=== PATIENT | female | born 1990 | race Caucasian/White ===

== ENCOUNTER 2017-02-19 13:00 | Inpatient (IN) | payer OTHER ==
--- NOTE | ~2017-02-19 | PN ---
Unit #: [id number] #: [id number] Patient: WILLIAM WAGNER [id number] [facility] [address] [place] [address] [id number] MR#: [id number] NAME: WILLIAM WAGNER ROOM: [facility]4 Age: 26 Sex: F Admission Date: 02/19/2017 : 1990 Attending Physician: Betsy Dobson M.D. Admitting Physician: Betsy Dobson M.D. Primary Care Physician: Primary Care Physician Scarlet SOUZA PROGRESS NOTES DATE OF SERVICE: 02/22/2017 SUBJECTIVE Ms. Wagner is a 26-year-old white female, who was seen today and chart was reviewed and case was discussed with the staff. She has been anxious, withdrawn, though appears to be doing better than yesterday and appears to be complications. The patient has been taking medications and tolerating them fairly well with no reported side effects. MENTAL STATUS EXAMINATION Young white female who was casually dressed with fair personal hygiene, appears to be in discomfort. She was awake and alert on interaction with intact orientation. Her mood was anxious with a congruent affect. She denies any suicidal or homicidal ideations. Her insight and judgement remain slightly impaired. TREATMENT PLAN 1. We will continue on her current medications and treatment protocol. We will monitor her response to medications and make further adjustments as needed. 2. We will continue to follow up. Dictated by... Lyn Mcmillan/nicko TD: 02/23/2017 00:54 JOB #: [id number] [facility] PROGRESS NOTES Page 1 of 1 X Betsy Dobson MD PROGRESS NOTE
--- NOTE | ~2017-02-19 | DS ---
Unit #: [id number] #: [id number] Patient: WILLIAM WAGNER [id number] [facility] [place] [address] [id number] I MR#: [id number] NAME: WILLIAM WAGNER ROOM: [facility] Age: 26 Sex: F Admission Date: 02/19/2017 : 1990 Discharge Date: 02/24/2017 Attending Physician: Betsy Dobson M.D. Primary Care Physician: Primary Care Physician No DISCHARGE SUMMARY IDENTIFYING DATA Ms. Wagner is a 26-year-old single white female, resident of [place], [place], who was self-referred to the hospital on a voluntary basis. HISTORY OF PRESENT ILLNESS Please see initial psychiatric evaluation for details. PAST PSYCHIATRIC HISTORY Please see initial psychiatric evaluation for details. PAST MEDICAL HISTORY Please see initial psychiatric evaluation for details. HOSPITAL COURSE The patient was admitted to the Adult Chemical Dependency and physical unit at [facility] Varma and was oriented to the hospital environment. Routine p.r.n. medications were initiated and she was started on the detox protocol and was closely monitored. The patient was taking medications regularly and was tolerating them fairly well and she was able to show a fairly decent therapeutic response and was able to come out of the detox without any complications, and was willing to continue treatment on an outpatient basis, and as such it was decided that she will be discharged and will continue treatment on outpatient basis. DISCHARGE DIAGNOSES [place] I Major depressive disorder, recurrent, moderate without psychotic features. Opiate dependence, moderate in acute withdrawal. Methamphetamine dependence, moderate. [place] II [place] III None. [place] IV Moderate psychosocial stressors. [place] V DISCHARGE MEDICATIONS None. CONDITION AT DISCHARGE Stable. PROGNOSIS Fair. Unit #: [id number] #: [id number] Patient: WILLIAM WAGNER Dictated by... Lyn Mcmillan/ramiro TD: 02/25/2017 10:47 JOB #: [id number] DISCHARGE SUMMARY Page 1 of 1 X Betsy Dobson MD DISCHARGE SUMMARY
--- NOTE | ~2017-02-19 | PN ---
Unit #: [id number] #: [id number] Patient: WILLIAM WAGNER [id number] [facility] [address] [place] [address] [id number] I MR#: [id number] NAME: WILLIAM WAGNER ROOM: [facility]4 Age: 26 Sex: F Admission Date: 02/19/2017 : 1990 Attending Physician: Betsy Dobson M.D. Admitting Physician: Betsy Dobson M.D. Primary Care Physician: Primary Care Physician Scarlet JEROME NOTES DATE 02/21/2017 DISCUSSION Ms. Wagner is a 26-year-old white female who was seen today and chart was reviewed and case was discussed with the staff. She has been anxious, withdrawn and rather seclusive to herself. Meanwhile, she has been cooperative with treatment recommendations as she has been taking the medications and tolerating them fairly well with no reported side effects. MENTAL STATUS EXAMINATION Young white female who was casually dressed with fair personal hygiene, appears to be in some distress or discomfort. She was awake and alert with impaired attention and concentration. Her mood was anxious with congruent affect. She denies any suicidal or homicidal ideations. Her insight and judgement remains slightly impaired. TREATMENT PLAN 1. We will continue her on her current medications and treatment protocol. We will monitor her response to the medication and make further adjustments as needed. 2. We will continue to follow up. Dictated by... Lyn Mcmillan/chantelle TD: 02/22/2017 02:50 JOB #: [id number] Unit #: [id number] #: [id number] Patient: WILLIAM WAGNER MARIA ESTHERJEOVANY PROGRESS NOTES Page 1 of 1 X Betsy Dobson MD PROGRESS NOTE
--- NOTE | ~2017-02-19 | PN ---
Unit #: [id number] #: [id number] Patient: WILLIAM WAGNER [id number] [facility] [address] [place] [address] [id number] I MR#: [id number] NAME: WILLIAM WAGNER ROOM: [facility] 2]4 Age: 26 Sex: F Admission Date: 02/19/2017 : 1990 Attending Physician: Betsy Dobson M.D. Admitting Physician: Betsy Dobson M.D. Primary Care Physician: Primary Care Physician Scarlet SOUZA PROGRESS NOTES DATE OF SERVICE: 02/23/2017 SUBJECTIVE Ms. Wagner is a 26-year-old white female, who was seen today and chart was reviewed and case was discussed with the staff. She has been anxious and withdrawn, though reports doing much better and appears to be coming out of the detox without any complications and also reports improvement in her depressive symptoms and denies any thoughts of wanting to hurt herself. MENTAL STATUS EXAMINATION Young white female, who was casually dressed with fair personal hygiene, appears to be in no acute distress or discomfort. She was awake and alert with intact orientation. Her mood was anxious with congruent affect. She denies any suicidal or homicidal ideations. Her insight and judgment remain slightly impaired. TREATMENT PLAN 1. We will continue on her current treatment protocol. We will monitor her response to the medications and make further adjustments as needed. 2. We will continue to follow up. Dictated by... Lyn Mcmillan/laural TD: 02/23/2017 15:26 JOB #: [id number] [facility] PROGRESS NOTES Page 1 of 1 X Betsy Dobson MD PROGRESS NOTE
--- NOTE | ~2017-02-19 | PA ---
Unit #: [id number] #: [id number] Patient: WILLIAM ELLIOTT [id number] [facility] [address] [place] [address] [id number] I MR#: [id number] NAME: WILLIAM ELLIOTT ROOM: P214 Age: 26 Sex: F Admission Date: 02/19/2017 : 1990 Date of Assessment: Attending Physician: Betsy Dobson M.D. Admitting Physician: Betsy Dobson M.D. Primary Care Physician: Primary Care Physician No PSYCHIATRIC ASSESSMENT IDENTIFYING DATA Ms Elliott is a 26-year-old single white female, who is a resident of [place], [place], and was self-referred to the hospital on a voluntary basis. CHIEF COMPLAINT "I'm court ordered for mental help and I am detoxing." HISTORY OF PRESENT ILLNESS Ms. Elliott is a 26-year-old white female with substance abuse and mood disorder, who was self-referred to the hospital. Upon presentation, she stated that she needs help and she is detoxing and that she is off her medications for couple months and does report increasing depression, anxiety, irritability, feelings of hopelessness and helplessness, and suicidal ideations with a plan to overdose on drugs. The patient reports that she is currently homeless and has been for several months and being asked to leave her mother's resident due to her substance abuse issues and that she has poor social support system that she has tried to overdose on pills several years ago and currently does report suicidal thoughts with intent and plan and as such was seen to be danger to self and therefore recommendation for inpatient level of care for safety and stabilization was made. The patient was admitted to the inpatient unit. SUBSTANCE ABUSE HISTORY The patient has extensive history of substance abuse and dependence including history of alcohol, cannabis, cocaine, opioids, methamphetamines, and benzodiazepines. Currently, she reports that she has been using up to a gram of heroin and a gram of methamphetamine via snorting a day and described both of them to be her drug of choice. PAST PSYCHIATRIC HISTORY The patient has a history of inpatient chemical dependency treatment at [place], at [facility], and at [facility], and review of the medical records indicate that she has been diagnosed and treated for mood disorder, but has been off her medication for couple of months and has been decompensating. PAST MEDICAL HISTORY No acute or chronic medical illnesses. ALLERGIES Vancomycin. Unit #: [id number] #: [id number] Patient: WILLIAM ELLIOTT PERSONAL AND SOCIAL HISTORY A 26-year-old white female, who reports that she is single, unemployed, and essentially homeless and has poor social support system. MENTAL STATUS EXAMINATION Young white female, who was casually dressed with fair personal hygiene, appears to be in no acute distress or discomfort. She was awake and alert on interaction with intact orientation to time, place, and person. Her mood was anxious and depressed with a congruent affect. Speech was slow and restricted in content. Her thought processes were disorganized with some looseness of associations and paranoid ideations and suicidal ideations. Her insight and judgment remain significantly impaired. DIAGNOSTIC IMPRESSION Psychiatric: Major depressive disorder, recurrent, moderate, without psychotic features; opioid dependence, moderate and acute withdrawals; methamphetamine dependence, moderate. Medical: None. STRESSORS: Moderate psychosocial stressors. TREATMENT PLAN 1. The patient has presented with a history of substance abuse and mood disorder, and has been decompensating. We will recommend inpatient hospitalization for detoxification, safety, and stabilization. We will start her back on her home medications. We will adjust the medications and monitor response. 2. Supportive therapy was provided to the patient. ESTIMATED LENGTH OF STAY 5 to 7 days. ABILITY TO HELP SELF Limited. WILLINGNESS TO HELP SELF The patient appears to be willing to help self. STRENGTHS 1. Communicative. 2. Cooperative. PROBLEMS 1. Chronic dysphoric symptoms. 2. Chronic chemical dependency. 3. Poor social support system. DISCHARGE CRITERIA The patient will be contingent upon the patient's ability to show resolution of her depression and anxiety and her ability to stay safe to herself, particularly after discharge from the hospital. Dictated by... Betsy Dobson M.D. Unit #: [id number] #: [id number] Patient: WILLIAM ELLIOTT IAA/modl TD: 02/20/2017 12:06 JOB #: [id number] PSYCHIATRIC ASSESSMENT Page 1 of 1 X Betsy Dobson MD PSYCHIATRIC ASSESSMENT
--- NOTE | ~2017-02-19 | PN ---
Unit #: [id number] #: [id number] Patient: WILLIAM WAGNER [id number] [facility] [address] [place] [address] [id number] MR#: [id number] NAME: WILLIAM WAGNER ROOM: [facility]4 Age: 26 Sex: F Admission Date: 02/19/2017 : 1990 Attending Physician: Betsy Dobson M.D. Admitting Physician: Betsy Dobson M.D. Primary Care Physician: Primary Care Physician Scarlet JEROME NOTES DATE 02/20/2017 DISCUSSION Ms. Wagner is a 26-year-old white female who was seen today and chart was reviewed and case was discussed with the staff. She has been anxious, withdrawn and rather seclusive to herself and describes herself to be in significant distress and discomfort. Meanwhile, she has been taking medications and tolerating them fairly well with no reported side effects. MENTAL STATUS EXAMINATION Young white female who was casually dressed with fair personal hygiene appears to be in some distress or discomfort. The patient was awake and alert with impaired attention and concentration. Her mood was anxious with a congruent affect. She denies any suicidal or homicidal ideation. Her insight and judgement remains slightly impaired. TREATMENT PLAN 1. We will continue her on her current medications and treatment protocol. We will monitor her response to the medication and make further adjustments as needed. 2. We will continue to follow up. Dictated by... Lyn Mcmillan/chantelle TD: 02/21/2017 02:54 JOB #: [id number] Unit #: [id number] #: [id number] Patient: WILLIAM WAGNER PROGRESS NOTES Page 1 of 1 X Betsy Dobson MD PROGRESS NOTE
--- NOTE | ~2017-02-19 | HP ---
Unit #: [id number] #: [id number] Patient: WILLIAM ELLIOTT [id number] [place] [address] [id number] I MR#: [id number] NAME: WILLIAM ELLIOTT ROOM: P214 Age: 26 Sex: F Admission Date: 02/19/2017 : 1990 Attending Physician: Betsy Dobson M.D. Admitting Physician: Betsy Dobson M.D. Primary Care Physician: Primary Care Physician No HISTORY AND PHYSICAL HISTORY OF PRESENT ILLNESS The patient is a 26-year-old female admitted to [address] [place] [address] on 02/19/2017 for suicidal ideations and to detox from multiple substances. PAST MEDICAL HISTORY 1. History of MRSA. 2. Polysubstance abuse. PAST SURGICAL HISTORY Left knee. SOCIAL HISTORY She is unemployed and homeless. She smokes one pack of cigarettes daily. Drinks a pint to one-fifth of vodka per day and uses multiple substances including methamphetamines and heroin. FAMILY MEDICAL HISTORY Noncontributory. ALLERGIES Vancomycin CURRENT MEDICATIONS The patient is not on any home medications. REVIEW OF SYSTEMS CONSTITUTIONAL: No fever or chills. HEENT: Denies any sore throat, ear pain or runny nose. CARDIOVASCULAR: Denies chest pain, irregular heart rhythm or palpitations. CHEST: Denies shortness of breath or cough. No hemoptysis. GASTROINTESTINAL: Denies nausea, vomiting, diarrhea or chronic constipation. ENDOCRINE: Denies history of increased thirst or urination. No recent significant weight loss or gain. GENITOURINARY: Denies dysuria, frequency, or hematuria. SKIN: Denies any rashes. HEMATOLOGIC: Denies history of increased bleeding or bruising. MUSCULOSKELETAL: Denies any hot, swollen joints. No generalized muscle pain. NEUROLOGIC: Denies problems with vision or speech. No frequent, severe headaches. No numbness, tingling or weakness in any extremities. Denies loss of bladder or bowel control. Unit #: [id number] #: [id number] Patient: WILLIAM ELLIOTT PHYSICAL EXAM GENERAL: She is awake, alert and oriented in no acute distress. VITAL SIGNS: Temperature 98.8, heart rate 121, respiration 18, blood pressure 116/84. HEIGHT: 5'3". WEIGHT: 125 pounds. SKIN: Warm and dry without rash or lesion. HEENT: Normocephalic. TMs not viewed. Oral and nasal passages clear. Conjunctivae clear. PERRLA. EOMs intact. NECK: Supple without lymphadenopathy or thyromegaly. HEART: Regular rate and rhythm without murmur. LUNGS: Clear. ABDOMEN: Soft, nontender. : Not done. EXTREMITIES: No evidence of cyanosis, clubbing or edema. Moves all without focal deficit. NEUROLOGICAL: Grossly within normal limits. Cranial Nerves: II: Visual melgoza are intact. III, IV AND : Extraocular movements are intact. Pupils are equal, round and reactive to light. V: Facial sensation is grossly normal. VII: Facial movements and expression are normal. VIII: Auditory acuity grossly intact. IX, X: Uvula is midline. Phonation is normal. XI: Patient shrugs shoulders and turns head normally. XII: Tongue protrudes in the midline. Sensory and Motor Function: Sensory and motor sensation is grossly normal. Motor: moves all extremities well. IMPRESSION 1. Psychiatric admission. 2. History of MRSA. 3. Polysubstance use. RECOMMENDATIONS Psychiatric per psychiatrist. MEDICAL: No contraindication to participate in facility activities. MEDICAL PROGNOSIS Good. MEDICAL CONDITION Stable. Dictated by... Mitra Montemayor/chantelle TD: 02/20/2017 21:26 JOB #: [id number] Unit #: [id number] #: [id number] Patient: WILLIAM ELLIOTT HISTORY AND PHYSICAL Page 1 of 1 X KAN DEMARCO APRN HISTORY AND PHYSICAL
[2017-02-21 09:49] LABS: URINE APPEARANCE CLOUDY; URINE BILIRUBIN NEG (NEG); URINE BLOOD NEG (NEG); URINE COLOR DK YELLOW; URINE GLUCOSE NEG (NEG); URINE KETONE NEG (NEG); URINE LEUKOCYTE ESTERASE TRACE (NEG); URINE NITRATE NEG (NEG); URINE PH 6.5 (5-8); URINE PROTEIN NEG (NEG); URINE SPECIFIC GRAVITY 1.015 (1.003-1.035)
[2017-02-21 09:53] LABS: URBCS1 AUWI 0-2 /[HPF] (0-2); URINE BACTERIA AUWI 1+ (NEGATIVE); URINE SQUAMOUS EPITHELIAL CELL MOD /[HPF]
[2017-02-21 10:22] LABS: AMPHETAMINE POS (NEG); BARBITURATES NEG (NEG); BENZODIAZEPINES POS (NEG); COCAINE NEG (NEG); MARIJUANA POS (NEG); OPIATES NEG (NEG); TRICYCLIC ANTIDEPRESSANTS NEG (NEG); U METHADONE NEG (NEG)
== END 2017-02-24 10:40 | disposition home or self-care (01) | DRG 885 ==
LOC: P2S 14:55
PROVIDERS: Psychiatry & Neurology Psychiatry
PROC: HZ2ZZZZ Detoxification Services for Substance Abuse Treatment (ICD-10-PCS; principal; 2017-02-19)
DX: F33.1 Major depressive disorder, recurrent, moderate (principal); F15.20 Other stimulant dependence, uncomplicated; F11.23 Opioid dependence with withdrawal; F17.210 Nicotine dependence, cigarettes, uncomplicated; Z59.0 Homelessness
CPT/HCPCS: 80307; 81003